=== PATIENT | male | born 1980 | race African-American/Black ===

== ENCOUNTER 2017-10-05 12:32 | Inpatient (IN) | payer MEDICAID ==
[~2017-10-05] VITALS: Ht 177.8 cm; Wt 68.0 kg
[2017-10-05] MEDS ORDERED: DEXTROSE 50% WATER 50ML SYRINGE IV ONE ×4 (13:09→14:30)
[2017-10-05] MEDS ORDERED: GLUCAGON,HUMAN RECOMBINANT 1MG/VIAL ONE (13:21)
[2017-10-05] MEDS ORDERED: GLUCAGON,HUMAN RECOMBINANT 1MG/VIAL IM ONE (14:30)
[2017-10-05] MEDS ORDERED: SODIUM CHLORIDE 0.9% 1,000 ML IV ONE (14:30)
[2017-10-05] MEDS ORDERED: ONDANSETRON HCL 4MG/2ML VIAL IV ONE (14:45)
[2017-10-05 15:39] LABS: BASOPHILS % 0.3 % (0.0-2.0); HEMATOCRIT. 33.8 % (42.0-52.0); HEMOGLOBIN. 10.6 g/dL (14.0-18.0); LYMPHOCYTES % 7.6 % (20.0-50.0); MEAN CORPUSCULAR HEMOGLOBIN 30.1 pg (28.0-32.0); MEAN CORPUSCULAR VOLUME 95.9 fL (80.0-94.0); MEAN PLATELET VOLUME 10.1 fl (7.4-10.4); NEUTROPHILS % 87.1 % (40.0-76.0); PLATELET 194 x1000/uL (130-400); RED BLOOD CELL COUNT 3.52 mill/uL (4.7-6.1)
[2017-10-05 15:44] LABS: CHLORIDE 103 mEq/L (98-107)
[2017-10-05 15:45] LABS: INR 1.1
[2017-10-05 16:20] LABS: HEPATITIS B SURFACE ANTIGEN NEGATIVE
[2017-10-05 16:49] LABS: HEPATITIS B CORE AB IGM NEGATIVE
[2017-10-05 16:50] LABS: HEPATITIS A AB IGM NEGATIVE (NEGATIVE)
[2017-10-05] MEDS ORDERED: NA PHOS,M-B/NA PHOS,DI-BA ENEMA 118ML PR PRN (19:30)
[2017-10-05] MEDS ORDERED: GUAIFENESIN 200MG/10ML SUGAR FREE UDC PO PRN (19:30)
[2017-10-05] MEDS ORDERED: CLONIDINE 0.1MG TABLET PO PRN (19:30)
[2017-10-05] MEDS ORDERED: HYDROCODONE/ACETAMINOPHEN 5/325MG TABLET PO PRN (19:30)
[2017-10-05] MEDS ORDERED: MAGNESIUM/ALUMINUM HYDROXIDE/SIMETHICONE 30ML UDC PO PRN (19:30)
[2017-10-05] MEDS ORDERED: DOCUSATE SODIUM 100MG CAPSULE PO PRN (19:30)
[2017-10-05] MEDS ORDERED: LORAZEPAM 2MG/ML CPJ IV PRN (19:30)
[2017-10-05] MEDS ORDERED: ONDANSETRON HCL 4MG/2ML VIAL IV PRN (19:30)
[2017-10-05] MEDS ORDERED: ACETAMINOPHEN 325MG TABLET PO PRN (19:30)
[2017-10-05] MEDS ORDERED: IPRATROPIUM/ALBUTEROL 0.5-3(2.5)MG/3ML NEB INH PRN (19:30)
[2017-10-05] MEDS ORDERED: ENOXAPARIN 40MG/0.4ML SYR SUBCUT SCH (19:30)
[2017-10-05 20:10] LABS: CLARITY URINE CLEAR (CLEAR); COLOR URINE YELLOW (YELLOW); KETONES URINE 1+ (NEGATIVE); LEUKOCYTE ESTERASE URINE NEGATIVE (NEGATIVE); NITRITE URINE NEGATIVE (NEGATIVE); OCCULT BLOOD URINE TRACE (NEGATIVE); PROTEIN URINE 1+ (NEGATIVE); SPECIFIC GRAVITY URINE 1.015 (1.005-1.030); UROBILINOGEN URINE 0.2 E.U./dL (0.2-1.0)
[2017-10-05 20:20] LABS: METHADONE URINE SCREEN NEGATIVE (NEGATIVE); OPIATES URINE SCREEN NEGATIVE (NEGATIVE)
[2017-10-05 20:21] LABS: *AMPHETAMINES SCREEN URINE NEGATIVE (NEGATIVE); *BARBITURATES SCREEN URINE NEGATIVE (NEGATIVE); *BENZODIAZEPINES SCREEN URINE NEGATIVE (NEGATIVE); *COCAINE SCREEN URINE NEGATIVE (NEGATIVE); CANNABINOID URINE SCREEN NEGATIVE (NEGATIVE); PHENCYCLIDINE URINE SCREEN NEGATIVE (NEGATIVE)
[2017-10-05 23:15] VITALS: BP 128/86
[2017-10-06] MEDS ORDERED: DEXT 5%/0.45% NACL 1000ML 1,000 ML IV SCH (01:00)
[2017-10-06] MEDS ORDERED: DEXTROSE 50% WATER 50ML SYRINGE IV PRN (01:15)
[2017-10-06] MEDS: DIPHENHYDRAMINE 50MG/ML VIAL IV PRN ×3 (01:49→16:04)
[2017-10-06] MEDS ORDERED: MELA3TAB PO (02:16)
[2017-10-06] MEDS ORDERED: GABA-531 PO (02:16)
[2017-10-06] MEDS ORDERED: DOCU-138 PO (02:16)
[2017-10-06] MEDS ORDERED: FOLI-43 PO (02:17)
[2017-10-06] MEDS ORDERED: ASCO-339 PO (02:19)
[2017-10-06] MEDS ORDERED: METF10004 PO ×2 (02:21)
[2017-10-06] MEDS ORDERED: PROP20TA7 PO (02:25)
[2017-10-06] MEDS ORDERED: DULO60CA44 PO (02:26)
[2017-10-06] MEDS ORDERED: DEXT15DR5 EACHEYE (02:27)
[2017-10-06] MEDS ORDERED: INSU100V3 SUBCUT (02:29)
[2017-10-06 04:00] VITALS: BP 129/84
[2017-10-06] MEDS: HYDROMORPHONE HCL/PF 2MG/ML CPJ IV PRN ×2 (06:05→11:34)
[2017-10-06] MEDS: BLOOD SUGAR DIAGNOSTIC STRIP TEST SCH ×3 (06:06→16:42)
[2017-10-06] MEDS: INSULIN LISPRO 100 UNITS/ML SUBCUT SCH ×2 (07:50→12:49)
[2017-10-06 08:59] VITALS: BP 120/78
[2017-10-06] MEDS ORDERED: ASPIRIN 81MG EC TABLET PO SCH (09:00)
[2017-10-06] MEDS ORDERED: ENOXAPARIN 40MG/0.4ML SYR SUBCUT SCH (09:00)
[2017-10-06 10:06] LABS: BASOPHILS % 0.2 % (0.0-2.0); CHLORIDE 101 mEq/L (98-107); EOSINOPHILS % 0.1 % (0.0-5.0); HEMATOCRIT. 30.2 % (42.0-52.0); LYMPHOCYTES % 13.1 % (20.0-50.0); MEAN CORPUSCULAR HEMOGLOBIN 30.1 pg (28.0-32.0); MEAN CORPUSCULAR VOLUME 91.2 fL (80.0-94.0); MEAN PLATELET VOLUME 9.6 fl (7.4-10.4); MONOCYTES % 11.1 % (2.0-8.0); NEUTROPHILS % 75.5 % (40.0-76.0); PLATELET 168 x1000/uL (130-400); RED BLOOD CELL COUNT 3.32 mill/uL (4.7-6.1); RED CELL DISTRIBUTION WIDTH 14.7 % (11.6-14.6)
[2017-10-06 10:13] LABS: LDL CHOLESTEROL 36 mg/dL (5-100)
[2017-10-06 10:15] LABS: HDL CHOLESTEROL 54 mg/dL (40-59)
[2017-10-06 12:25] VITALS: BP 119/79
[2017-10-06 13:57] VITALS: BP 119/79
[2017-10-06 16:23] VITALS: BP 116/73
[2017-10-07 08:25] LABS: HIV SCREEN 4G Non Reactive (Non Reactive)
== END 2017-10-06 17:10 | DRG 420 ==
LOC: ER 12:32 → EDBD 12:32 → 6WST 17:04 → ENRESERV 20:18
PROVIDERS: ADMIT Internal Medicine; ATTEND Internal Medicine
DX: E11.649 Type 2 diabetes mellitus with hypoglycemia without coma (principal); J96.90 Respiratory failure, unspecified, unspecified whether with hypoxia or hypercapnia; G93.41 Metabolic encephalopathy; N17.9 Acute kidney failure, unspecified; I10 Essential (primary) hypertension; B34.9 Viral infection, unspecified; R65.10 Systemic inflammatory response syndrome (SIRS) of non-infectious origin without acute organ dysfunction; Z79.4 Long term (current) use of insulin; Z79.84 Long term (current) use of oral hypoglycemic drugs; Z79.899 Other long term (current) drug therapy; Z89.511 Acquired absence of right leg below knee; Z99.3 Dependence on wheelchair
CPT/HCPCS: 36415; 36556; 70450; 71045; 80048; 80053; 80061; 80305; 81003; 82010; 82962; 83036; 83880; 84484; 85025; 85610; 86341; 86705; 86709; 86803; 87186; 87340; 93005; 96374; 96376; 99291; C1893; J1170; J1200; J1610; J1650; J1815; J2405; J7030

== ENCOUNTER 2018-12-22 01:42 | Inpatient (IN) | payer MEDICAID ==
[~2018-12-22] VITALS: Ht 177.8 cm; Wt 67.4 kg
[~2018-12-22 01:42] MED LIST: ASCO-339 PO; DEXT15DR5 EACHEYE; DOCU-138 PO; DULO60CA44 PO; FOLI-43 PO; GABA-531 PO; INSU100V3 SUBCUT; MELA3TAB PO; METF-416 PO; PROP20TA7 PO
[2018-12-22] MEDS ORDERED: METOCLOPRAMIDE HCL 10MG/2ML VIAL IV STA (02:48)
[2018-12-22] MEDS ORDERED: MORPHINE SULFATE 4 MG/ML CPJ (NOT FOR IM USE) IV STA (02:48)
[2018-12-22] MEDS ORDERED: FAMOTIDINE 20MG/2ML VIAL IV STA (02:48)
[2018-12-22] MEDS ORDERED: SODIUM CHLORIDE 0.9% 1,000 ML IV ONE (02:48)
[2018-12-22 03:21] LABS: BASOPHILS % 0.9 % (0.0-2.0); EOSINOPHILS % 0.7 % (0.0-5.0); HEMATOCRIT. 30.3 % (42.0-52.0); HEMOGLOBIN. 10.3 g/dL (14.0-18.0); LYMPHOCYTES % 20.4 % (20.0-50.0); MEAN CORPUSCULAR HEMOGLOBIN 34.9 pg (28.0-32.0); MEAN CORPUSCULAR VOLUME 103.1 fL (80.0-94.0); MEAN PLATELET VOLUME 8.1 fl (7.4-10.4); MONOCYTES % 6.8 % (2.0-8.0); NEUTROPHILS % 71.2 % (40.0-76.0); PLATELET 210 x1000/uL (130-400); RED BLOOD CELL COUNT 2.94 mill/uL (4.7-6.1); RED CELL DISTRIBUTION WIDTH 12.8 % (11.6-14.6)
[2018-12-22 03:27] LABS: CHLORIDE 106 mEq/L (98-107)
[2018-12-22 03:32] LABS: ETHANOL BLOOD 154 mg/dL
[2018-12-22 03:34] LABS: BETA HYDROXYBUTYRATE 1.9 mMol/L (0.0-0.3)
[2018-12-22] MEDS ORDERED: POTASSIUM CHLORIDE 20MEQ TABLET SR PO SCH (05:15)
[2018-12-22 05:57] LABS: CLARITY URINE TURBID (CLEAR); COLOR URINE YELLOW (YELLOW); KETONES URINE 1+ (NEGATIVE); LEUKOCYTE ESTERASE URINE TRACE (NEGATIVE); NITRITE URINE POSITIVE (NEGATIVE); OCCULT BLOOD URINE 2+ (NEGATIVE); PH URINE 6.5 (4.5-8.0); PROTEIN URINE 1+ (NEGATIVE); SPECIFIC GRAVITY URINE 1.012 (1.005-1.030); UROBILINOGEN URINE 0.2 E.U./dL (0.2-1.0)
[2018-12-22 06:16] LABS: *AMPHETAMINES SCREEN URINE NEGATIVE (NEGATIVE); *BARBITURATES SCREEN URINE NEGATIVE (NEGATIVE); *BENZODIAZEPINES SCREEN URINE NEGATIVE (NEGATIVE); *COCAINE SCREEN URINE NEGATIVE (NEGATIVE); METHADONE URINE SCREEN NEGATIVE (NEGATIVE); OPIATES URINE SCREEN PRESUMTIVE POSITIVE (NEGATIVE)
[2018-12-22 06:17] LABS: CANNABINOID URINE SCREEN PRESUMTIVE POSITIVE (NEGATIVE); PHENCYCLIDINE URINE SCREEN NEGATIVE (NEGATIVE)
[2018-12-22] MEDS ORDERED: DEXT 5%/0.45% NACL KCL 10MEQ/L 1,000 ML IV SCH (06:45)
[2018-12-22] MEDS ORDERED: ONDANSETRON HCL 4MG/2ML INJ IV PRN (06:45)
[2018-12-22] MEDS ORDERED: ACETAMINOPHEN 325MG TABLET PO PRN (06:45)
[2018-12-22] MEDS ORDERED: CLONIDINE 0.1MG TABLET PO PRN (06:45)
[2018-12-22] MEDS: METOCLOPRAMIDE HCL 10MG/2ML VIAL IV SCH ×2 (11:44→17:00)
[2018-12-22] MEDS: MORPHINE SULFATE 2 MG/ML CPJ (NOT FOR IM USE) IV PRN ×3 (11:45→23:01)
[2018-12-22 12:00] VITALS: BP 151/94
[2018-12-22 15:46] VITALS: BP 130/88
[2018-12-22 16:00] VITALS: BP 132/91
[2018-12-22] MEDS: POTASSIUM CHLORIDE INJ 40 MEQ in DEXT 5% WATER 250 ML IV NR ×2 (18:39→22:57)
[2018-12-22 20:00] VITALS: BP 149/106
[2018-12-22] MEDS ORDERED: DEXTROSE 50% WATER 50ML SYRINGE IV PRN (23:15)
[2018-12-22] MEDS: INSULIN LISPRO 100 UNITS/ML SUBCUT SCH (23:41)
[2018-12-22] MEDS: BLOOD SUGAR DIAGNOSTIC STRIP TEST SCH (23:41)
[2018-12-23] VITALS: BP 132/103
[2018-12-23] MEDS: METOCLOPRAMIDE HCL 10MG/2ML VIAL IV SCH ×2 (01:09→06:00)
[2018-12-23 04:00] VITALS: BP 128/93
[2018-12-23] MEDS: MORPHINE SULFATE 2 MG/ML CPJ (NOT FOR IM USE) IV PRN ×4 (04:22→21:36)
[2018-12-23] MEDS: BLOOD SUGAR DIAGNOSTIC STRIP TEST SCH ×4 (07:02→21:50)
[2018-12-23] MEDS: INSULIN LISPRO 100 UNITS/ML SUBCUT SCH ×4 (07:02→21:49)
[2018-12-23 07:30] VITALS: BP 154/109
[2018-12-23 08:15] LABS: BASOPHILS % 0.5 % (0.0-2.0); EOSINOPHILS % 1.6 % (0.0-5.0); HEMATOCRIT. 28.7 % (42.0-52.0); HEMOGLOBIN. 9.9 g/dL (14.0-18.0); LYMPHOCYTES % 26.4 % (20.0-50.0); MEAN CORPUSCULAR HEMOGLOBIN 35.2 pg (28.0-32.0); MEAN PLATELET VOLUME 8.2 fl (7.4-10.4); NEUTROPHILS % 58.5 % (40.0-76.0); PLATELET 182 x1000/uL (130-400); RED BLOOD CELL COUNT 2.81 mill/uL (4.7-6.1); RED CELL DISTRIBUTION WIDTH 12.6 % (11.6-14.6)
[2018-12-23 10:45] LABS: CHLORIDE 109 mEq/L (98-107)
[2018-12-23] MEDS: DEXT 5%/0.45% NACL KCL 10MEQ/L 1,000 ML IV SCH ×2 (10:47→23:35)
[2018-12-23 12:03] VITALS: BP 144/92
[2018-12-23] MEDS ORDERED: POTASSIUM CHLORIDE 20MEQ TABLET SR PO NR (12:30)
[2018-12-23] MEDS ORDERED: POTASSIUM CHLORIDE INJ 40 MEQ in DEXT 5% WATER 250 ML IV NR (14:00)
[2018-12-23 16:20] VITALS: BP 140/80
[2018-12-23] MEDS: DIPHENHYDRAMINE 50MG/ML VIAL IV PRN ×2 (17:06→23:34)
[2018-12-23 20:00] VITALS: BP 128/93
[2018-12-24] VITALS: BP 135/93
[2018-12-24] MEDS: MORPHINE SULFATE 2 MG/ML CPJ (NOT FOR IM USE) IV PRN ×4 (02:11→14:06)
[2018-12-24 04:00] VITALS: BP 120/79
[2018-12-24] MEDS: DIPHENHYDRAMINE 50MG/ML VIAL IV PRN ×2 (06:08→12:23)
[2018-12-24] MEDS: BLOOD SUGAR DIAGNOSTIC STRIP TEST SCH ×2 (06:08→12:23)
[2018-12-24 07:44] VITALS: BP 126/88
[2018-12-24] MEDS: INSULIN LISPRO 100 UNITS/ML SUBCUT SCH ×2 (08:40→12:23)
[2018-12-24 12:03] VITALS: BP 131/87
[2018-12-24] MEDS: DEXT 5%/0.45% NACL KCL 10MEQ/L 1,000 ML IV SCH (12:23)
[2018-12-24 12:56] LABS: CHLORIDE 108 mEq/L (98-107)
[2018-12-24] MEDS ORDERED: POTASSIUM CHLORIDE 20MEQ/PACKET PO NR (14:00)
[2018-12-24 14:21] VITALS: BP 131/87
[2018-12-24 15:28] VITALS: BP 122/90
== END 2018-12-24 15:30 | disposition home or self-care (01) | DRG 48 ==
LOC: ER 01:42 → 8WST 05:10 → EDBEDREQ 05:12 → EDBEDREQTM 05:12 → SUPCPDRO 06:37 → ENRESERV 07:25
PROVIDERS: ADMIT Hospitalist; ATTEND Hospitalist
DX: E11.43 Type 2 diabetes mellitus with diabetic autonomic (poly)neuropathy (principal); K86.1 Other chronic pancreatitis; K31.84 Gastroparesis; E87.6 Hypokalemia; M25.511 Pain in right shoulder; Z79.84 Long term (current) use of oral hypoglycemic drugs; Z79.899 Other long term (current) drug therapy; Z89.9 Acquired absence of limb, unspecified
CPT/HCPCS: 36415; 71045; 74176; 80048; 80305; 80320; 81003; 82010; 82962; 83605; 83735; 99285; J1200; J1815; J2270; J2765; J3480; J3490; J7030; J7060; G0480

== ENCOUNTER 2019-01-04 20:35 | Emergency (ER) | payer MEDICAID ==
[~2019-01-04] VITALS: Ht 172.7 cm; Wt 75.0 kg
[2019-01-05] MEDS ORDERED: ONDANSETRON 4MG ODT PO ONE (03:45)
[2019-01-05] MEDS ORDERED: FAMOTIDINE 20MG TABLET PO ONE (03:45)
[2019-01-05 08:34] VITALS: BP 129/84
== END 2019-01-05 09:11 | disposition home or self-care (01) ==
LOC: ER 20:35
DX: K52.9 Noninfective gastroenteritis and colitis, unspecified (principal); E11.9 Type 2 diabetes mellitus without complications
CPT/HCPCS: 99283; Q0162

== ENCOUNTER 2019-02-04 19:47 | Inpatient (IN) | payer MEDICAID ==
[~2019-02-04] VITALS: Ht 177.8 cm; Wt 55.8 kg
[2019-02-04] MEDS ORDERED: ONDANSETRON HCL 4MG/2ML INJ IV ONE (20:30)
[2019-02-04] MEDS ORDERED: SODIUM CHLORIDE 0.9% 1000ML BAG (SEPSIS BOLUS) IV ONE (20:30)
[2019-02-04 20:59] LABS: HEMATOCRIT. 39.3 % (42.0-52.0); HEMOGLOBIN. 13.5 g/dL (14.0-18.0); MEAN CORPUSCULAR HEMOGLOBIN 33.6 pg (28.0-32.0); MEAN CORPUSCULAR VOLUME 97.8 fL (80.0-94.0); MEAN PLATELET VOLUME 10.4 fl (7.4-10.4); PLATELET 144 x1000/uL (130-400); RED BLOOD CELL COUNT 4.02 mill/uL (4.7-6.1); RED CELL DISTRIBUTION WIDTH 13.8 % (11.6-14.6)
[2019-02-04 21:04] LABS: CHLORIDE 99 mEq/L (98-107)
[2019-02-04 21:12] LABS: PLATELET ESTIMATE NORMAL
[2019-02-04] MEDS ORDERED: POTASSIUM CHLORIDE 20MEQ TABLET SR PO ONE (21:30)
[2019-02-04] MEDS ORDERED: POTASSIUM CHLORIDE INJ 30 MEQ in DEXT 5%/0.9% NACL 1,000 ML IV ONE (21:30)
[2019-02-04] MEDS ORDERED: POTASSIUM CHLORIDE 20MEQ/PACKET PO ONE (21:45)
[2019-02-04] MEDS ORDERED: VANCOMYCIN 1 G PREMIX 200 ML IV ONE (22:30)
[2019-02-04] MEDS ORDERED: PIPERACILLIN/TAZ 3.375G PREMIX 50 ML IV ONE (22:30)
[2019-02-04] MEDS ORDERED: MAGNESIUM/ALUMINUM HYDROXIDE/SIMETHICONE 30ML UDC PO PRN (23:00)
[2019-02-04] MEDS ORDERED: KETOROLAC 15MG/ML VIAL IV PRN (23:00)
[2019-02-04] MEDS ORDERED: ACETAMINOPHEN 325MG TABLET PO PRN (23:00)
[2019-02-04] MEDS ORDERED: IPRATROPIUM/ALBUTEROL 0.5-3(2.5)MG/3ML NEB NEB PRN (23:00)
[2019-02-04] MEDS ORDERED: GUAIFENESIN 200MG/10ML SUGAR FREE UDC PO PRN (23:00)
[2019-02-04] MEDS ORDERED: NITROGLYCERIN 0.4MG TABLET SL SL PRN (23:00)
[2019-02-04] MEDS ORDERED: CLONIDINE 0.1MG TABLET PO PRN (23:00)
[2019-02-04] MEDS ORDERED: ONDANSETRON HCL 4MG/2ML INJ IV PRN (23:00)
[2019-02-04] MEDS ORDERED: DOCUSATE SODIUM 100MG CAPSULE PO PRN (23:00)
[2019-02-04 23:54] LABS: ETHANOL BLOOD < 10 mg/dL
[2019-02-04 23:56] LABS: LDL CHOLESTEROL 12 mg/dL (5-100); TOTAL IRON BINDING CAPACITY 196 ug/dL (250-450)
[2019-02-04 23:58] LABS: HDL CHOLESTEROL 120 mg/dL (40-59); T4 FREE 1.12 ng/dL (0.76-1.46)
[2019-02-05] VITALS (11 sets, daily range): BP systolic 90–123; BP diastolic 56–98
[2019-02-05 01:00] LABS: FOLIC ACID (FOLATE) SERUM > 20.00 ng/mL (>5.38)
[2019-02-05] MEDS ORDERED: POTASSIUM PHOS,M-BASIC-D-BASIC 30 MMOL in DEXT 5% WATER 500 ML IV NR (01:00)
[2019-02-05 01:13] LABS: VITAMIN B12 SERUM 1556 pg/mL (211-911)
[2019-02-05] MEDS ORDERED: POTASSIUM CHLORIDE 20MEQ TABLET SR PO SCH ×2 (02:00→10:45)
[2019-02-05 02:30] LABS: CLARITY URINE TURBID (CLEAR); COLOR URINE YELLOW (YELLOW); KETONES URINE TRACE (NEGATIVE); LEUKOCYTE ESTERASE URINE 3+ (NEGATIVE); NITRITE URINE NEGATIVE (NEGATIVE); OCCULT BLOOD URINE 3+ (NEGATIVE); PROTEIN URINE 2+ (NEGATIVE); SPECIFIC GRAVITY URINE 1.011 (1.005-1.030)
[2019-02-05 02:45] LABS: *AMPHETAMINES SCREEN URINE NEGATIVE (NEGATIVE); *BARBITURATES SCREEN URINE NEGATIVE (NEGATIVE); *BENZODIAZEPINES SCREEN URINE NEGATIVE (NEGATIVE); *COCAINE SCREEN URINE NEGATIVE (NEGATIVE); METHADONE URINE SCREEN NEGATIVE (NEGATIVE); OPIATES URINE SCREEN NEGATIVE (NEGATIVE)
[2019-02-05 02:46] LABS: CANNABINOID URINE SCREEN NEGATIVE (NEGATIVE); PHENCYCLIDINE URINE SCREEN NEGATIVE (NEGATIVE)
[2019-02-05] MEDS ORDERED: MVI, ADULT NO.1 10 ML, FOLIC ACID 1 MG, THIAMINE HCL 100 MG in SODIUM CHLORIDE 0.9% 1,0... IV NR ×4 (04:00)
[2019-02-05] MEDS ORDERED: MAGNESIUM 2 G PREMIX 50 ML IV NR (04:00)
[2019-02-05 07:27] LABS: HEMATOCRIT. 27.9 % (42.0-52.0); HEMOGLOBIN. 9.7 g/dL (14.0-18.0); MEAN CORPUSCULAR HEMOGLOBIN 34.2 pg (28.0-32.0); MEAN CORPUSCULAR VOLUME 98.8 fL (80.0-94.0); MEAN PLATELET VOLUME 10.2 fl (7.4-10.4); PLATELET 98 x1000/uL (130-400); RED BLOOD CELL COUNT 2.82 mill/uL (4.7-6.1)
[2019-02-05 07:35] LABS: CHLORIDE 106 mEq/L (98-107)
[2019-02-05 07:41] LABS: PHOSPHORUS 3.3 mg/dL (2.5-4.9)
[2019-02-05] MEDS ORDERED: LEVOFLOXACIN 500MG PREMIX 100 ML IV NR (08:00)
[2019-02-05] MEDS: BLOOD SUGAR DIAGNOSTIC STRIP TEST SCH ×4 (08:10→21:00)
[2019-02-05] MEDS: INSULIN LISPRO 100 UNITS/ML SUBCUT SCH ×5 (08:21→23:57)
[2019-02-05] MEDS: ENOXAPARIN 40MG/0.4ML SYR SUBCUT SCH (08:57)
[2019-02-05] MEDS: CEFTRIAXONE 1,000 MG in DEXTROSE 5% WATER 50 ML IV SCH (08:57)
[2019-02-05] MEDS ORDERED: CEFTRIAXONE 1 G PREMIX 50 ML IV SCH (09:00)
[2019-02-05] MEDS: HYDROCODONE/ACETAMINOPHEN 5/325MG TABLET PO PRN ×2 (11:56→17:29)
[2019-02-05] MEDS: POTASSIUM CHLORIDE INJ 40 MEQ in DEXT 5% WATER 500 ML IV SCH ×2 (11:57→14:08)
[2019-02-05 12:34] LABS: PLATELET ESTIMATE SLIGHTLY DECREASED
[2019-02-05 12:44] LABS: BG BASE EXCESS -5.9 mmol/L (-2.0-2.0); BG CARBOXYHEMOGLOBIN 0.3 % (0.5-1.5); BG DEOXYHEMOGLOBIN 3.1 % (0.0-5.0); BG FRACTION INSPIRED OXYGEN 21; BG HCO3 ACT 18.6 mmol/L (22.0-26.0); BG METHEMOGLOBIN 0.3 % (0.0-1.5); BG OXYGEN SATURATION 96.9 % (92.0-98.5); BG OXYHEMOGLOBIN 96.3 % (94.0-97.0); BG PCO2 32.7 mmHg (35.0-45.0); BG PH 7.373 (7.350-7.450); BG PO2 102.1 mmHg (75.0-100.0); BG SAMPLE SITE RIGHT BRACHIAL; BG TOTAL HEMOGLOBIN 9.6 g/dL (12.0-18.0); BG VENT MODE ROOM AIR
[2019-02-05] MEDS: POTASSIUM CHLORIDE INJ 40 MEQ in SODIUM CHLORIDE 0.9% 1,000 ML IV SCH ×2 (14:17→23:37)
[2019-02-05 18:53] LABS: HEPATITIS B SURFACE ANTIGEN NEGATIVE
[2019-02-05] MEDS: DEXTROSE 50% WATER 50ML SYRINGE IV PRN (23:16)
[2019-02-06] VITALS (12 sets, daily range): BP systolic 102–126; BP diastolic 38–93
[2019-02-06] MEDS: ZOLPIDEM TARTRATE 5MG TABLET PO PRN ×2 (00:03→21:22)
[2019-02-06] MEDS: HYDROCODONE/ACETAMINOPHEN 5/325MG TABLET PO PRN ×3 (00:03→21:24)
[2019-02-06 06:24] LABS: BASOPHILS % 0.1 % (0.0-2.0); EOSINOPHILS % 0.7 % (0.0-5.0); MEAN CORPUSCULAR HEMOGLOBIN 34.5 pg (28.0-32.0); MEAN PLATELET VOLUME 9.6 fl (7.4-10.4); NEUTROPHILS % 78.2 % (40.0-76.0); PLATELET 100 x1000/uL (130-400); RED BLOOD CELL COUNT 2.62 mill/uL (4.7-6.1); RED CELL DISTRIBUTION WIDTH 14.7 % (11.6-14.6)
[2019-02-06 06:38] LABS: PHOSPHORUS 1.4 mg/dL (2.5-4.9)
[2019-02-06] MEDS: DEXTROSE 50% WATER 50ML SYRINGE IV PRN ×2 (07:12→07:13)
[2019-02-06] MEDS: BLOOD SUGAR DIAGNOSTIC STRIP TEST SCH ×4 (07:20→21:20)
[2019-02-06] MEDS: POTASSIUM CHLORIDE 20MEQ TABLET SR PO SCH ×2 (08:36→17:43)
[2019-02-06] MEDS: LEVOFLOXACIN 250MG PREMIX 50 ML IV SCH (08:39)
[2019-02-06] MEDS ORDERED: POTASSIUM CHLORIDE INJ 80 MEQ in DEXT 5% WATER 500 ML IV SCH (09:00)
[2019-02-06] MEDS ORDERED: POTASSIUM PHOS,M-BASIC-D-BASIC 30 MMOL in DEXT 5% WATER 500 ML IV SCH (09:00)
[2019-02-06] MEDS: ENOXAPARIN 40MG/0.4ML SYR SUBCUT SCH (09:00)
[2019-02-06] MEDS ORDERED: DIPHENHYDRAMINE 25MG CAPSULE PO PRN (09:45)
[2019-02-06] MEDS: CEFTRIAXONE 1,000 MG in DEXTROSE 5% WATER 50 ML IV SCH (10:01)
[2019-02-06] MEDS: POTASSIUM CHLORIDE INJ 40 MEQ in SODIUM CHLORIDE 0.9% 1,000 ML IV SCH (11:34)
[2019-02-06] MEDS: INSULIN LISPRO 100 UNITS/ML SUBCUT SCH ×3 (12:06→21:00)
[2019-02-06] MEDS: DIPHENHYDRAMINE 50MG/ML VIAL IV PRN (21:24)
[2019-02-07] VITALS (12 sets, daily range): BP systolic 38–122; BP diastolic 17–86
[2019-02-07] MEDS: POTASSIUM CHLORIDE INJ 40 MEQ in SODIUM CHLORIDE 0.9% 1,000 ML IV SCH (00:19)
[2019-02-07] MEDS: POTASSIUM CHLORIDE 20MEQ TABLET SR PO SCH ×2 (06:40→17:16)
[2019-02-07 07:25] LABS: BASOPHILS % 0.3 % (0.0-2.0); EOSINOPHILS % 0.5 % (0.0-5.0); HEMOGLOBIN. 9.3 g/dL (14.0-18.0); LYMPHOCYTES % 17.2 % (20.0-50.0); MEAN CORPUSCULAR HEMOGLOBIN 34.3 pg (28.0-32.0); MEAN CORPUSCULAR VOLUME 99.7 fL (80.0-94.0); MEAN PLATELET VOLUME 9.9 fl (7.4-10.4); MONOCYTES % 5.3 % (2.0-8.0); NEUTROPHILS % 76.7 % (40.0-76.0); PLATELET 110 x1000/uL (130-400); RED BLOOD CELL COUNT 2.71 mill/uL (4.7-6.1); RED CELL DISTRIBUTION WIDTH 14.9 % (11.6-14.6)
[2019-02-07 07:40] LABS: PHOSPHORUS 3.4 mg/dL (2.5-4.9)
[2019-02-07] MEDS: BLOOD SUGAR DIAGNOSTIC STRIP TEST SCH ×4 (07:44→21:33)
[2019-02-07] MEDS: INSULIN LISPRO 100 UNITS/ML SUBCUT SCH ×4 (07:45→21:00)
[2019-02-07] MEDS: CEFTRIAXONE 1,000 MG in DEXTROSE 5% WATER 50 ML IV SCH (08:38)
[2019-02-07] MEDS: ENOXAPARIN 40MG/0.4ML SYR SUBCUT SCH (08:38)
[2019-02-07] MEDS: CITRIC ACID/SODIUM CITRATE SOLN 15ML UDC PO SCH ×3 (09:13→17:00)
[2019-02-07] MEDS: LEVOFLOXACIN 250MG PREMIX 50 ML IV SCH (09:13)
[2019-02-07] MEDS ORDERED: POTASSIUM CHLORIDE INJ 40 MEQ in DEXT 5% WATER 250 ML IV SCH (10:00)
[2019-02-07] MEDS ORDERED: POTASSIUM CHLORIDE INJ 40 MEQ in SODIUM CHLORIDE 0.45% 1,000 ML IV SCH (10:00)
[2019-02-07] MEDS: DIPHENHYDRAMINE 50MG/ML VIAL IV PRN ×2 (10:29→21:33)
[2019-02-07] MEDS: HYDROCODONE/ACETAMINOPHEN 5/325MG TABLET PO PRN ×2 (10:30→21:34)
[2019-02-07] MEDS: ZOLPIDEM TARTRATE 5MG TABLET PO PRN (21:34)
[2019-02-08] VITALS (10 sets, daily range): BP systolic 91–120; BP diastolic 52–80
[2019-02-08] MEDS: DIPHENHYDRAMINE 50MG/ML VIAL IV PRN ×3 (05:08→22:37)
[2019-02-08 07:27] LABS: HEMATOCRIT. 29.6 % (42.0-52.0); MEAN CORPUSCULAR HEMOGLOBIN 34.2 pg (28.0-32.0); PLATELET 114 x1000/uL (130-400); RED BLOOD CELL COUNT 2.93 mill/uL (4.7-6.1); RED CELL DISTRIBUTION WIDTH 15.1 % (11.6-14.6)
[2019-02-08] MEDS: BLOOD SUGAR DIAGNOSTIC STRIP TEST SCH ×4 (07:30→21:00)
[2019-02-08 07:45] LABS: PHOSPHORUS 2.7 mg/dL (2.5-4.9)
[2019-02-08] MEDS: INSULIN LISPRO 100 UNITS/ML SUBCUT SCH ×4 (08:00→21:00)
[2019-02-08] MEDS: CEFTRIAXONE 1,000 MG in DEXTROSE 5% WATER 50 ML IV SCH (09:11)
[2019-02-08] MEDS: ENOXAPARIN 40MG/0.4ML SYR SUBCUT SCH (09:12)
[2019-02-08] MEDS: CITRIC ACID/SODIUM CITRATE SOLN 15ML UDC PO SCH ×3 (09:12→16:00)
[2019-02-08] MEDS: LEVOFLOXACIN 250MG PREMIX 50 ML IV SCH (09:13)
[2019-02-08 10:42] LABS: PLATELET ESTIMATE SLIGHTLY DECREASED
[2019-02-08] MEDS: HYDROCODONE/ACETAMINOPHEN 5/325MG TABLET PO PRN ×2 (11:05→22:36)
[2019-02-08] MEDS: POTASSIUM CHLORIDE 20MEQ TABLET SR PO SCH ×2 (13:12→22:36)
[2019-02-08] MEDS: MAGNESIUM OXIDE 400MG TABLET PO SCH ×2 (13:12→21:00)
[2019-02-08] MEDS ORDERED: MAGNESIUM 2 G PREMIX 50 ML IV SCH (14:00)
[2019-02-08] MEDS: ZOLPIDEM TARTRATE 5MG TABLET PO PRN (22:37)
[2019-02-09] MEDS: DIPHENHYDRAMINE 50MG/ML VIAL IV PRN (06:22)
[2019-02-09] MEDS: BLOOD SUGAR DIAGNOSTIC STRIP TEST SCH ×2 (07:45→11:53)
[2019-02-09 08:00] VITALS: BP 114/91
[2019-02-09] MEDS: CITRIC ACID/SODIUM CITRATE SOLN 15ML UDC PO SCH ×2 (08:34→12:30)
[2019-02-09] MEDS: MAGNESIUM OXIDE 400MG TABLET PO SCH (08:35)
[2019-02-09] MEDS: ENOXAPARIN 40MG/0.4ML SYR SUBCUT SCH (08:35)
[2019-02-09] MEDS: CEFTRIAXONE 1,000 MG in DEXTROSE 5% WATER 50 ML IV SCH (08:35)
[2019-02-09] MEDS: POTASSIUM CHLORIDE 20MEQ TABLET SR PO SCH (08:35)
[2019-02-09] MEDS: LEVOFLOXACIN 250MG PREMIX 50 ML IV SCH (08:36)
[2019-02-09] MEDS: INSULIN LISPRO 100 UNITS/ML SUBCUT SCH ×2 (08:37→12:19)
[2019-02-09] MEDS: HYDROCODONE/ACETAMINOPHEN 5/325MG TABLET PO PRN (09:39)
[2019-02-09 11:45] VITALS: BP 108/64
[2019-02-09 11:45] LABS: BASOPHILS % 0.4 % (0.0-2.0); EOSINOPHILS % 0.7 % (0.0-5.0); HEMATOCRIT. 27.7 % (42.0-52.0); HEMOGLOBIN. 9.4 g/dL (14.0-18.0); LYMPHOCYTES % 27.7 % (20.0-50.0); MEAN CORPUSCULAR HEMOGLOBIN 34.3 pg (28.0-32.0); MEAN CORPUSCULAR VOLUME 100.9 fL (80.0-94.0); MEAN PLATELET VOLUME 9.8 fl (7.4-10.4); MONOCYTES % 11.9 % (2.0-8.0); NEUTROPHILS % 59.3 % (40.0-76.0); PLATELET 130 x1000/uL (130-400); RED BLOOD CELL COUNT 2.74 mill/uL (4.7-6.1); RED CELL DISTRIBUTION WIDTH 14.7 % (11.6-14.6)
[2019-02-09 12:06] VITALS: BP 115/69
[2019-02-09 13:36] LABS: CHLORIDE 115 mEq/L (98-107)
[2019-02-09 13:46] LABS: PHOSPHORUS 2.8 mg/dL (2.5-4.9)
[2019-02-09 14:00] VITALS: BP 105/72
[2019-02-10] MEDS ORDERED: LEVOFLOXACIN 250MG TABLET PO SCH (08:00)
[2019-02-10] MEDS ORDERED: CEFTRIAXONE 1 G PREMIX 50 ML IV SCH (09:00)
== END 2019-02-09 15:23 | disposition home or self-care (01) | DRG 720 ==
LOC: ER 19:47 → EDBEDREQ 21:20 → 5EST 22:37 → EDBEDREQ 22:41 → EDBEDREQTM 22:41 → ENRESERV 22:56
PROVIDERS: ADMIT Internal Medicine; ATTEND Internal Medicine
PROC: 02HV33Z Insertion of Infusion Device into Superior Vena Cava, Percutaneous Approach (ICD-10-PCS; principal; 2019-02-04)
PROC: B548ZZA Ultrasonography of Superior Vena Cava, Guidance (ICD-10-PCS; 2019-02-04)
DX: A41.9 Sepsis, unspecified organism (principal); N17.0 Acute kidney failure with tubular necrosis; E43 Unspecified severe protein-calorie malnutrition; E11.43 Type 2 diabetes mellitus with diabetic autonomic (poly)neuropathy; D69.6 Thrombocytopenia, unspecified; E11.22 Type 2 diabetes mellitus with diabetic chronic kidney disease; E11.51 Type 2 diabetes mellitus with diabetic peripheral angiopathy without gangrene; E87.2 Acidosis; K31.84 Gastroparesis; E11.65 Type 2 diabetes mellitus with hyperglycemia; N18.3 Chronic kidney disease, stage 3 (moderate); G83.9 Paralytic syndrome, unspecified; E83.39 Other disorders of phosphorus metabolism; E86.1 Hypovolemia; E87.6 Hypokalemia; D63.1 Anemia in chronic kidney disease; R65.20 Severe sepsis without septic shock; E83.51 Hypocalcemia; Z89.511 Acquired absence of right leg below knee; Z79.4 Long term (current) use of insulin; Z82.49 Family history of ischemic heart disease and other diseases of the circulatory system; Z83.3 Family history of diabetes mellitus; Z87.81 Personal history of (healed) traumatic fracture; Z68.1 Body mass index [BMI] 19.9 or less, adult
CPT/HCPCS: 36415; 36600; 71045; 73030; 74176; 80048; 80061; 80305; 80320; 81003; 82375; 82550; 82607; 82746; 82805; 82962; 83036; 83540; 83550; 83605; 83735; 84100; 84439; 84443; 87493; 93005; 93970; 96365; 97161; 99285; J0696; J1200; J1650; J1815; J1885; J1956; J2405; J2543; J3370; J3411; J3475; J3480; J3490; J7030; J7040; J7042; J7060; Q0163; G0480